=== PATIENT | female | born 1935 | race Caucasian/White ===

== ENCOUNTER → 2016-09-03 | Outpatient (CLI) | payer MEDICARE, BC ==
--- NOTE | 2016-09-03 15:09 | RADRPT ---
PROCEDURE: XR pelvis/left hip. CLINICAL INDICATION: Hip pain TECHNIQUE: AP pelvis/lateral left hip view performed COMPARISON: No prior studies are available for comparison. FINDINGS: There is moderate bilateral hip osteoarthrosis. This is associated with joint space narrowing, subch ondral sclerosis and osteophytosis. There is normal mineralization. No fractures or osseous lesion s are identified. The soft tissues are unremarkable. IMPRESSION: Moderate bilateral hip osteoarthrosis. RPTAT: [facility] .Mateo Andrade MD, Date Time Electronically viewed and signed by .Mateo Andrade MD, on 09/03/2016 15:09 .B/
--- NOTE | 2016-09-04 03:20 | HKNOTE ---
DATE OF SERVICE: 09/03/2016 MAIN COMPLAINT: Pain in the left hip. HISTORY OF MAIN COMPLAINT: The patient is a 81-year-old female who complains of pain in her left hi p, which has been present for about [address] Alston a few months ago. He told her t hat she needed a right total hip replacement. However, she elected to have a cortisone injection in to the hip and physical therapy. Neither one gave her any relief. She now comes in for another opi nion. This past Wednesday patient fell and landed on her right buttocks. She was helped up, but afte r that she is able to walk quite well. She did not have any "black and blue" on her buttocks and jr herrera has no residuals from that fall (____ pain). Note that I performed a hip replacement on her berenice r, Joy Mcleod, 20 years ago! The patient has remembered me and kept my information. PRESENT COMPLAINTS: The pain in the left hip is localized to the groin with some radiation down the anterior thigh to just above the knee. The patient's pain in the left hip varies from mild to armando re. On a bad day, she is not able to walk more than 2 blocks without stopping using a cane. On goo d days, she has pain for about 1 block and then she is pain free for about 1 block and then she gets pain with every step that she takes. She is mostly free of pain if she is not walking. She states , "This hip problem impacts on my life every day." In particular, she is not able to do stairs. Jr herrera gets pain with every step that she takes going up and down stairs. She is not taking any pain med ications at the present time. She has tried multiple toaj-bfd-denwtow pain medications, but they do not give her any relief. She requests "a pain pill." Pain is sometimes aggravated by weightbearin g. She does not get rest pain. She gets pain at night if she "moves the leg suddenly." She has a history of low back pain with sciatica, which she thinks was "kicked up" by the fall she took last . She still gets some numbness and tingling in her right big toe. She limps some of the time . She feels "one of my legs is longer than the other, but I do not know which." She does not have a shoe lift. She can clip her toenails and tie her shoelaces. SPORTING ACTIVITIES: Swimming. PAST ORTHOPEDIC HISTORY: PREVIOUS ORTHOPEDIC OPERATIONS: None. PRIOR CORTISONE INTAKE: None. ALCOHOL INTAKE: One glass of wine socially, perhaps once a week. OTHER JOINT PROBLEMS: Pain in her wrists, especially on the left side, pain in the right foot and a nkle, pain in the left shoulder, pain in the right pinky. BLOOD TESTS FOR ARTHRITIS: None. PRIOR INJURIES TO HIPS OR KNEES: None. WORK STATUS: The patient is retired. She lives alone. She has never been and has no child pratibha (she will definitely need to go to a convalescent facility after her surgery). PAST MEDICAL HISTORY: 1. Hypertension. 2. Hypercholesterolemia. 3. Acid reflux. 4. Tinnitus. 5. History of breast cancer (lumpectomy). PAST SURGICAL HISTORY: 1. Lumpectomy for breast cancer, 1996. 2. Bilateral ovarian cysts removed, 1967. 3. Fibroid tumor removed, 1969. 4. D and C for uterine polyps, 2015. 5. Duodenal polyps removed, 2015. ALLERGIES: 1. EPINEPHRINE (!). 2. TETRACYCLINE, 3. CIPRO. MEDICATIONS: 1. Metoprolol 100 mg daily. 2. Lipitor 10 mg daily. 3. Multivitamins 1 daily. 4. Fish oil 2 daily. 5. Glucosamine chondroitin sulfate 2 a day. 6. Biotin 1 daily. 7. Vitamin D3 at 1000 mg a day. 8. Baby aspirin 81 mg a day. 9. CoQ10 at 100 mg twice daily. 10. Lipoflavonoid 2 daily. 11. Probiotic 2 daily. HISTORY OF PRIOR INJURIES: None. FAMILY HISTORY: Father at unstated age, unstated cause. Mother at unstated age of cancer . Note that mother had osteoarthritis of her hips as well. SYSTEMS REVIEW: Prone to headaches. Skipping heartbeats (arrhythmia). Prone to heartburn. Excess ronan night urination. Tingling sensations and numbness in the right big toe. Gait disturbance from the right knee. Hypertension. Ankles occasionally swell. HABITS: The patient quit smoking 30 years ago. She smoked half a pack a day for about 24 years. A lcohol intake: A small glass of wine on rare occasions for about 24 years. STITCHDOWNS TOE FORMER: Dr. Adeline Lewis, [address] [facility], [address], [place] [address]. PHYSICAL EXAMINATION: GENERAL: The patient is a fit-looking, youthful 81-year-old female. She looks at least 10 years yo taylor than her stated age. VITAL SIGNS: Height 5 feet 1, weight 125 pounds. Blood pressure 120/75, temperature 98.2. The pat ient's gait is slightly antalgic. She walks without a walking aid. Examination of her buttocks and lower back, no evidence of ecchymosis or external injury to the skin . BACK: Dynamic pain assessment reveals a pain free range of motion in flexion, extension, lateral be nding, and rotation. Inspection of the spine reveals no list. There is no lumbar paraspinal muscle spasm. The pelvis is level. Facet stress test is negative bilaterally. Palpation of the spine de monstrates no tenderness of the spinous processes, facet joints, sacroiliac joint, sciatic notch, or posterior thigh. NEUROLOGIC: Motor examination reveals no muscle deficit in the lower extremities. Deep tendon refl exes in the lower extremities: Right knee jerk plus, left knee jerk plus, right ankle jerk plus, le ft ankle jerk plus. Straight leg raising is negative bilaterally at 80 degrees. Lasegue and SCOTTY tests are negative. LEFT HIP: Range of motion of the left hip is as follows: Flexion is 95 degrees, external rotation is 30 degrees, internal rotation is 0 degrees, abduction is 25 degrees, and adduction is 20 degrees. Marked pain in the left groin at the limits of motion. No tenderness anywhere around the left up. RIGHT HIP: Normal range of motion to the limits without pain. RIGHT KNEE: The right knee shows normal alignment. Active and passive extension is 0 degrees. Act ronan and passive flexion is 135 degrees. The medial and lateral collateral ligaments and cruciate li gaments are intact. Misael test is negative. There is no effusion, tenderness, scarring, crepitus , or cysts. The patella tracks normally. There is no tenderness on the articular surface of the pa tella or in the patellar groove. The Q angle is normal. LEFT KNEE: The left knee shows normal alignment. Active and passive extension is 0 degrees. Activ e and passive flexion is 135 degrees. The medial and lateral collateral ligaments and cruciate liga ments are intact. Misael test is negative. There is no effusion, tenderness, scarring, crepitus, or cysts. The patella tracks normally. There is no tenderness on the articular surface of the pickens lla or in the patellar groove. The Q angle is normal. IMAGING: Plain x-rays of her pelvis and left hip obtained today and at the [facility] was reviewed (2-views). These show severe degenerative osteoarthritis of the left hip joint with almost complete loss of the superior joint space, subchondral sclerosis, and intraosseous cyst formation. Small osteophytes. Imaging of the right hip as seen on these views shows quite marked narrowing of the right hip joint space as well. DIAGNOSES: 1. Severe symptomatic degenerative osteoarthritis of the left hip. 2. Moderate nonsymptomatic degenerative osteoarthritis of the right hip. 3. Hypertension. 4. Hypercholesterolemia. 5. Acid reflux. 6. Tinnitus. 7. History of breast cancer/lumpectomy. 8. ALLERGIC TO EPINEPHRINE, TETRACYCLINE, AND CIPRO. MANAGEMENT: The patient was advised that she most certainly will need to have a left hip replacemen t sometime in the near future. The operation and some of the major possible complications were disc ussed with her in a fair amount of detail. The patient was given my manual titled "Arthritis of the Hip Joint" which contains information leatha rning the various alternatives of treatment. It includes various forms of conservative treatment, i ncluding the use of nonsteroidal anti-inflammatory medications and their dangers. Various surgical alternatives are discussed. The technique of total hip replacement is discussed in detail, includin g possible complications. Included also is a section on the possible complications of blood transfu jax, a section on postoperative precautions, and an exercise program to follow at home after total hip replacement. The long-term care of a total hip replacement implant is also covered in detail. The patient was instructed to read this manual in its entirety since it is, in and of itself, a form of informed consent. After reading this manual, the patient will make a list of further questions that may not have been covered adequately. The patient was further advised that this manual, althou gh exhaustive in nature, is only intended to supplement and complement a one-on-one discussion with me. The patient was referred to my website, [employer]. She will call when she is ready to consid er proceeding with surgery. FINAL DIAGNOSES: 1. Severe symptomatic degenerative osteoarthritis of the left hip. 2. Moderate nonsymptomatic degenerative osteoarthritis of the right hip. 3. Hypertension. 4. Hypercholesterolemia. 5. Acid reflux. 6. Tinnitus. 7. History of breast cancer/lumpectomy. 8. ALLERGIC TO EPINEPHRINE, TETRACYCLINE, AND CIPRO. The patient was given a prescription for tramadol 50 mg p.o. t.i.d. p.r.n. She will call to schedule the surgery when she is ready to proceed. She will need to have a complet e medical evaluation by Dr. Bello. Miguel Angel fluid it looks like a cane 97 there, Giving the address already cholestoff Dictated By: TULIO FRANCO/JOSY Conf#: [id number] DID#: [id number]
== END | disposition home or self-care (01) ==
LOC: HKI 14:08
DX: M16.0 Bilateral primary osteoarthritis of hip (principal); M25.552 Pain in left hip; M54.40 Lumbago with sciatica, unspecified side; I10 Essential (primary) hypertension; E78.00 Pure hypercholesterolemia, unspecified; K21.9 Gastro-esophageal reflux disease without esophagitis; H93.19 Tinnitus, unspecified ear; Z85.3 Personal history of malignant neoplasm of breast; Z87.891 Personal history of nicotine dependence; Z91.81 History of falling
CPT/HCPCS: 73502; G0463